=== PATIENT | male | born 2000 | race Caucasian/White ===

== ENCOUNTER → 2022-08-21 11:15 | Outpatient (BNVA) | payer OTHER, SELFPAY | PROVIDERS: Visit Provider Podiatrist Foot & Ankle Surgery | DX: L84 Corns and callosities (principal); M21.6X1 Other acquired deformities of right foot; M21.6X2 Other acquired deformities of left foot | CPT/HCPCS: 73630 ==

== ENCOUNTER → 2023-03-01 15:19 | Outpatient (BNVA) | payer OTHER, SELFPAY | PROVIDERS: Visit Provider Student in an Organized Health Care Education/Training Program | DX: S69.82XA Other specified injuries of left wrist, hand and finger(s), initial encounter; W19.XXXA Unspecified fall, initial encounter | CPT/HCPCS: 73110 ==

== ENCOUNTER 2023-03-08 14:42 | Outpatient (CLI) | payer OTHER, SELFPAY ==
--- NOTE | 2023-03-08 15:00 | MR_ITS ---
WS: [id number] MRI LEFT WRIST WITHOUT CONTRAST. COMPARISON: Radiograph 03/01/2023 and 02/26/2023 Multiplanar, multisequence imaging is performed without contrast. Acute marrow edema throughout large portions of the pisiform and triquetrum. Lucencies are noted whic h are nondisplaced in the triquetrum consistent with comminuted but nondisplaced fracture. There is l oss of the normal cortex of the triquetrum. The pisiform does contain marrow edema but no definite fr acture. There is increased fluid in the articulation between the triquetrum and pisiform and also wit hin the soft tissues of the medial wrist. The extensor carpi ulnaris tendon passes close to the marro w edema and the soft tissue edema but appears normal. There is abnormal signal throughout the triangular fibrocartilage consistent with a high-grade tear. There is fluid like signal in the region of the TFCC near the ulnar styloid. There is also fluid exte nding into the distal radial ulnar joint. Highly suspicious for peripheral TFCC tear. Carpal rows are normally aligned. Scapholunate ligament is normal. IMPRESSION: 1. Posttraumatic marrow edema in large portions of the triquetrum and pisiform. 2. Nondisplaced triquetral fractures. No pisiform fracture. 3. Large amount of soft tissue edema along the medial wrist. 4. Abnormal signal throughout a large portion of the peripheral TFCC consistent with a tear. There i s also fluid extending into the distal radial ulnar joint.
== END 2023-03-08 14:43 | disposition home or self-care (01) ==
LOC: RAD 14:42
PROVIDERS: Visit Provider Student in an Organized Health Care Education/Training Program
DX: S62.115A Nondisplaced fracture of triquetrum [cuneiform] bone, left wrist, initial encounter for closed fracture (principal); X58.XXXA Exposure to other specified factors, initial encounter
CPT/HCPCS: 73221

== ENCOUNTER → 2023-05-02 14:15 | Outpatient (BNVA) | payer OTHER, SELFPAY | PROVIDERS: PCP Nurse Practitioner Family; Visit Provider Nurse Practitioner Family | DX: Z13.9 Encounter for screening, unspecified (principal) | CPT/HCPCS: 85660 ==